=== PATIENT | female | born 1965 | race African-American/Black ===

== ENCOUNTER 2020-10-23 09:51 | Emergency (ER) | payer OTHER ==
[2020-10-23] MEDS ORDERED: CYCLOBENZAPRINE10 MG PO (10:32)
[2020-10-23] MEDS ORDERED: NAPROXEN500 MG PO (10:32)
== END 2020-10-23 11:08 | disposition home or self-care (01) ==
LOC: FER 09:51
DX: M54.5 Low back pain (principal); I10 Essential (primary) hypertension; Z79.899 Other long term (current) drug therapy
CPT/HCPCS: 72110; J1885

== ENCOUNTER 2022-03-03 18:42 | Emergency (ER) | payer OTHER ==
[~2022-03-03 18:42] MED LIST: CYCLOBENZAPRINE10 MG PO; NAPROXEN500 MG PO
[2022-03-03] MEDS ORDERED: NAPROXEN500 MG PO (21:03)
[2022-03-03] MEDS ORDERED: BACLOFEN 10MG T10 MG PO (21:03)
== END 2022-03-03 21:20 | disposition home or self-care (01) ==
LOC: FER 18:42
DX: M54.2 Cervicalgia (principal); M54.6 Pain in thoracic spine; M54.50 Low back pain, unspecified; I10 Essential (primary) hypertension; E11.9 Type 2 diabetes mellitus without complications; V49.40XA Driver injured in collision with unspecified motor vehicles in traffic accident, initial encounter
CPT/HCPCS: 72125; 72128; 72131; 96372; J1100; J1885